=== PATIENT | female | born 1985 ===

== ENCOUNTER 2018-03-11 15:46 | Inpatient (IN) | payer OTHER ==
[~2018-03-11] VITALS: Ht 167.6 cm; Wt 64.4 kg
[2018-04-10] MEDS ORDERED: PRENATAL FORMU1 EAC1 PO (00:52)
== END 2018-04-12 11:19 | DRG 775 ==
LOC: LDR 04-10 00:19 → OB/GYN 04-10 01:45 → LDR 04-20 12:45
PROC: 10E0XZZ Delivery of Products of Conception, External Approach (ICD-10-PCS; principal; 2018-04-10)
PROC: 0KQM0ZZ Repair Perineum Muscle, Open Approach (ICD-10-PCS; 2018-04-10)
PROC: 0W8NXZZ Division of Female Perineum, External Approach (ICD-10-PCS; 2018-04-10)
PROC: 4A033R1 Measurement of Arterial Saturation, Peripheral, Percutaneous Approach (ICD-10-PCS; 2018-04-10)
PROC: 4A1HXCZ Monitoring of Products of Conception, Cardiac Rate, External Approach (ICD-10-PCS; 2018-04-10)
DX: O70.1 Second degree perineal laceration during delivery (principal); Z37.0 Single live birth; Z3A.38 38 weeks gestation of pregnancy; Z22.330 Carrier of Group B streptococcus

== ENCOUNTER 2021-02-13 08:35 | Day surgery (SDC) | payer OTHER ==
[~2021-02-13 08:35] MED LIST: PRENATAL FORMU1 EAC1 PO
== END 2021-02-13 17:15 | disposition home or self-care (01) ==
LOC: CIR.AMB 08:35
PROVIDERS: ATTEND Obstetrics & Gynecology
DX: Z30.2 Encounter for sterilization (principal); Z20.822 Contact with and (suspected) exposure to COVID-19